=== PATIENT | male | born 1955 | race Caucasian/White ===

== ENCOUNTER → 2022-06-12 | Outpatient (CLI) | payer MEDICARE ==
--- NOTE | 2022-06-12 15:31 | P.PN ---
Progress Note - Text Progress Note Date: 06/12/22 This is a 66 year-old male patient who has sleep apnea. The patient was diagnosed having obstructive sleep apnea approximately 10 years ago. At that time the patient had a [facility] evaluation and the patient was diagnosed having CHENTE and he thinks that he was quitting breathing around 28 times an hour. This is consistent with moderately severe disease. He was given a ResMed S9, and currently has a VPAP auto which is set at P min 4 and pressure a maximum pressure of 25 with a pressure support of 4. He was also given a Simplus fullface mask. Unfortunately, he was able to achieve adequate compliancy and the patient ultimately was uncomfortable and intolerant to the BiPAP and he ended up quitting the treatment has been on no treatment . He had gained around 50 pounds since his original diagnosis. His blood pressure is elevated. He has comorbidities including coronary artery disease. Currently he is on a VPAP . During earlier evaluations in my office, I have tried different settings including a automatic VPAP pressures minimum of 4 and a maximum of 60 with a pressure support of 4. The patient showed some degree of success and he was averaging around 4.6 hours of BiPAP use per night. Nevertheless, at the later stage, he ended up quitting the treatment and he was not using it on a regular basis. His last evaluation with me in the office was on 11/22/2021. At that time, I tried him on a IPAP at the lowest setting of 8 over 4 cm of water, S mode , yet again, the patient failed to maintain compliancy. Today's coming in for further advice. He has undergone an ENT evaluation by Dr. Scott and his nasal passages are patent. He currently has a dream where fullface mask under the nose. While off treatment, the patient is snoring. He has chronic hypersomnia and sleepiness during the day. His current weight is 274 pounds and his Transfer score is at 7. 18 inches. He has going to bed at around 10 PM, waking up 6 AM in the morning and is feeling not refreshed. The is sleeping in a different bedroom. The patient wakes up 2 times the middle of the night and is able to go back to sleep without any major difficulties. He is coming in for further advice. He has tried BiPAP therapy and he gets short of breath and he cannot breathe and various pressures that were offered to him. He failed VPAP auto. He failed low-pressure setting BiPAP at a pressure of 8 over 4. BP is 125/90 with a pulse of 62 and respirations are 18 with a weight of 274 and the temperature is 98.4 and a body mass index is 41.4 with an Transfer score of 7 and the neck size of 18 inches Gen. appearance the patient is obese, comfortable no acute distress The patient appeared well nourished and normally developed. Vital signs as documented. Head exam is unremarkable. No scleral icterus or corneal arcus noted. Neck is without jugular venous distension, thyromegaly, or carotid bruits. Carotid upstrokes are brisk bilaterally. The patient has a Mallampati class IV. Lungs are clear to auscultation and percussion. Cardiac exam reveals the PMI to be normally sized and situated. Rhythm is regular. First and second heart sounds normal. No murmurs, rubs or gallops. Abdominal exam reveals normal bowel sounds, no masses, no organomegaly and no aortic enlargement. Extremities are nonedematous and both femoral and pedal pulses are normal. Examination of the skin revealed no evidence of significant rashes, suspicious appearing nevi or other concerning lesions.Neurologically, the patient is awake and alert and the patient does not have any focal neurological deficit. Cranial nerves are essentially intact. assessment Obstructive sleep apnea syndrome - the patient has obstructive sleep apnea. The patient was diagnosed at least 10 years ago and he underwent his study through a [facility] system where he was given diagnosis of moderate severe obstructive sleep apnea, possibly an AHI of 28. I checked his VPAP machine which is a new generation ResMed. I noted the pressure setting at a minimum pressure of 4, maximum pressure of 16 with a pressure support 4. He is using a dreamware fullface mask.I did several adjustments on this patient's machine including lowering his BiPAP pressure to a pressure of 8 over 4 cm of water and changing his mask interface and all of t hese interventions failed. The patient is unable to maintain CPAP therapy and various pressures and his main complaint is shortness of breath Hypertension Coronary artery disease with previous coronary bypass surgery History of seizure disorder Morbid obesity with a BMI of 41 Plan He has tremors diagnosis of sleep apnea by doing a home sleep study to assess the presence of sleep apnea and its severity and decide and ongoing treatment is worthwhile. If ongoing treatment is needed, and lab CPAP titration will be recommended for this patient. Encourage weight loss. Optimize sleep hygiene measures. We'll continue to follow. ENT evaluation was done and the findings were essentially benign.
== END ==
LOC: SLEEP 14:17
PROVIDERS: ATTEND Internal Medicine Critical Care Medicine
DX: G47.33 Obstructive sleep apnea (adult) (pediatric) (principal); I10 Essential (primary) hypertension; I25.10 Atherosclerotic heart disease of native coronary artery without angina pectoris; E66.01 Morbid (severe) obesity due to excess calories; Z99.89 Dependence on other enabling machines and devices; G40.909 Epilepsy, unspecified, not intractable, without status epilepticus; Z68.41 Body mass index [BMI] 40.0-44.9, adult
CPT/HCPCS: 99202

== ENCOUNTER → 2022-10-23 | Outpatient (CLI) | payer MEDICARE ==
--- NOTE | 2022-10-23 16:30 | P.PN ---
Progress Note - Text Progress Note Date: 10/23/22 On today's evaluation of 10/23/2022, I'm seeing the patient for a follow-up regarding his obstructive sleep apnea treatment. The patient is known to me and the patient is known to have obstructive sleep apnea moderate to severe with an AHI of 28 and a more recent home sleep study that was on this patient confirmed the presence of severe CHENTE with an AHI [address] Servin desaturation.. The patient has told different CPAP units. The first CPAP unit is a newer generation ResMed VPAP auto which is set at a EPAP of 10, max and pressure of 20 with a pressure support of 4 and the other one is a S9 severe disease in the setting of the machine is at EPAP minimal 4 and a maximum of 16 with a pressure support of 4. He is alternating between 2 machines. I checked the compliancy in both of the machines. I think the results are essentially comparable. On the newer generation ResMed, the patient has been averaging about 7 hours of BiPAP use per night and average pressure delivered by the machines around 14/10 with a tidal volume of 540 and a respiratory rate of 12 and a minute ventilation of 6.5 L. The patient's AHI is down to 1.1. He was also using the simplus fullface mask. The patient is complaining of oral dryness. His humidity is automatic and the temperature of the tube is at 75F. This patient's main complaint is difficulties in oral dryness. The date on the S9 severe disease are also compatible. The patient is still feeling not rested and he wants to improve his sleep quality in general. Is known to have coronary artery disease, previous bypass surgery and hypertension. He remains obese and his body weight is at 265 although the patient has lost some weight since his last evaluation BP is 133/91 with a pulse of 63 and a respiration of 20 and a temperature of 97.9 with a pulse ox of 95% Gen. appearance the patient is obese, comfortable The patient appeared well nourished and normally developed. Vital signs as documented. Head exam is unremarkable. No scleral icterus or corneal arcus noted. Neck is without jugular venous distension, thyromegaly, or carotid bruits. Carotid upstrokes are brisk bilaterally. The patient has a Mallampati class IV with significant crowding of the posterior oropharynx. Lungs are clear to auscultation and percussion. Cardiac exam reveals the PMI to be normally sized and situated. Rhythm is regular. First and second heart sounds normal. No murmurs, rubs or gallops. Abdominal exam reveals normal bowel sounds, no masses, no organomegaly and no aortic enlargement. Extremities are nonedematous and both femoral and pedal pulses are normal.Examination of the skin revealed no evidence of significant rashes, suspicious appearing nevi or other concerning lesions.Neurologically, the patient is awake and alert and the patient does not have any focal neurological deficit. Cranial nerves are essentially intact. Assessment Severe CHENTE with an AHI 51 currently on VPAP auto with the above-mentioned setting. The patient is having some difficulties with oral dryness. Compliancy still suboptimal. Nocturnal oxygen desaturation secondary obstructive sleep apnea Morbid obesity with interval weight loss, body mass index is 39.7 Coronary artery disease with previous bypass surgery Hypertension Seizure disorder Plan I made further adjustment on the patient's VPAP auto. I dropped a EPAP down to 6 and The max and pressure at 20 with a pressure support of 4. The patient will use the Simplus fullface mask. I dropped the temperature down to 70 and I increase the humidity to 5. The patient will see back in the office in 2 months time for a mother compliancy check. Patient was educated on the use of his BiPAP and we'll continue to follow.
== END ==
LOC: SLEEP 15:32
PROVIDERS: ATTEND Internal Medicine Critical Care Medicine
DX: G47.33 Obstructive sleep apnea (adult) (pediatric) (principal); E66.01 Morbid (severe) obesity due to excess calories; Z68.39 Body mass index [BMI] 39.0-39.9, adult; I25.10 Atherosclerotic heart disease of native coronary artery without angina pectoris; I10 Essential (primary) hypertension; G40.909 Epilepsy, unspecified, not intractable, without status epilepticus; Z99.89 Dependence on other enabling machines and devices
CPT/HCPCS: 99212

== ENCOUNTER → 2023-12-10 | Outpatient (CLI) | payer MEDICARE | END | disposition home or self-care (01) | LOC: LABPAT 08:40 | PROVIDERS: ATTEND Orthopaedic Surgery | DX: Z01.812 Encounter for preprocedural laboratory examination (principal); M17.12 Unilateral primary osteoarthritis, left knee; Z22.322 Carrier or suspected carrier of Methicillin resistant Staphylococcus aureus | CPT/HCPCS: 87070 ==

== ENCOUNTER 2023-12-23 07:59 | Day surgery (SDC) | payer MEDICARE ==
--- NOTE | 2023-12-23 06:37 | HP ---
HISTORY AND PHYSICAL DATE OF SURGERY: 12/23/2023 HISTORY OF PRESENT ILLNESS: Mickey Rodriguez is a 68-year-old gentleman, seen with symptomatic left knee osteoarthritis. Options for treatment were discussed with him. He elected to proceed with left total knee arthroplasty. Consent was obtained. Medical clearance was provided by Dr. Melinda Mansfield. Cardiac clearance was provided by Dr. Hubbard. PAST MEDICAL HISTORY: Hypertension, hyperlipidemia, cardiovascular disease. PAST SURGICAL HISTORY: Coronary bypass surgery. DAILY MEDICATIONS: Albuterol inhaler, amlodipine, atorvastatin, hydrochlorothiazide, losartan, and Xarelto. ALLERGIES: Penicillin. SOCIAL HISTORY: He denies current tobacco use. PHYSICAL EVALUATION OF THE LEFT KNEE: His range of motion is 0 on 30 degrees. He has a mild effusion. Tenderness, medial joint line. Crepitus, medial patellofemoral compartments with range of motion. Pain with patellofemoral compression. Ligaments stable. Hip rotation without pain. Distal neurovascular exam is intact. IMAGING STUDIES: Left knee radiographs reveal severe osteoarthritic changes. IMPRESSION: 1. Left knee osteoarthritis. 2. Hypertension. 3. Hyperlipidemia. 4. Cardiovascular disease. PLAN: Left total knee arthroplasty. MMODL / IJN: [id number] /
[~2023-12-23 07:59] MED LIST: HYDROmorphone 0.5 MG/0.5 ML SYRINGE IVP PRN; LIDOCAINE 1% (10MG/ML) FOR IV START INTRADERMA PRN; TRANEXAMIC 1,000 MG/100ML-NACL 1,000 MG in SALINE 1 100ML.BAG IVPB PRN
[2023-12-23] MEDS: IV FLUID CONTINUATION 1,000 ML IV ONE ×2 (08:45→12:35)
[2023-12-23 08:56] LABS: INR 1.1 (<1.2); Prothrombin Time 11.5 sec (10.0-12.5)
[2023-12-23] MEDS: LACTATED RINGERS 1,000 ML IV SCH ×3 (09:00→13:45)
[2023-12-23] MEDS: MELOXICAM 7.5 MG TAB PO PRN (09:03)
[2023-12-23] MEDS: fentaNYL (PF) 50 MCG/ML 2 ML AMP IVP ONE (09:03)
[2023-12-23] MEDS: MIDAZOLAM 2 MG/2 ML VIAL IVP ONE (09:03)
[2023-12-23] MEDS: ACETAMINOPHEN TAB 500 MG TAB PO PRN (09:03)
[2023-12-23] MEDS: ONDANSETRON 4 MG/2 ML VIAL IVP ONE (09:14)
[2023-12-23] MEDS: DEXAMETHASONE SOD PHOSPHATE 4 MG/ML 1 ML VIAL IVP STA (09:15)
[2023-12-23] MEDS ORDERED: fentaNYL (PF) 50 MCG/ML 2 ML AMP ONE (09:31)
[2023-12-23] MEDS ORDERED: ePHEDrine 50 MG/ML 1 ML VIAL ONE (09:31)
[2023-12-23] MEDS ORDERED: MIDAZOLAM 2 MG/2 ML VIAL ONE (09:31)
[2023-12-23] MEDS ORDERED: PROPOFOL 10 MG/ML 20 ML VIAL IV ONE (09:31)
[2023-12-23] MEDS ORDERED: TRANEXAMIC 1,000 MG/100ML-NACL PREMIX BAG ONE (09:31)
[2023-12-23] MEDS ORDERED: SODIUM CHLORIDE 0.9% (PF) 10 ML VIAL ONE (09:31)
[2023-12-23] MEDS ORDERED: ROPIVACAINE 5 MG/ML 30 ML VIAL ONE (09:31)
[2023-12-23] MEDS ORDERED: DEXAMETHASONE SOD PHOSPHATE 4 MG/ML 1 ML VIAL ONE (09:31)
[2023-12-23] MEDS: ceFAZolin 3 GM in SODIUM CHLORIDE 0.9% 100 ML IVPB PRN (09:34)
[2023-12-23] MEDS: ceFAZolin 1,000 MG in SODIUM CHLORIDE 0.9% 1,000 ML IRRIGATION ONE (10:06)
--- NOTE | 2023-12-23 10:29 | P.ANPRN ---
Procedure Note - Anesthesia - Nerve Block Performed Left Adductor Canal Infusion Time Out Performed: Yes Date of Procedure: 12/23/23 Procedure Start Time: :03 Procedure Stop Time: 09:12 Location of Patient: PreOp Indication: Acute Post-Operative Pain, Requested by Surgeon Sedation Type: Sedate with meaningful contact maintained Preparation: Sterile Prep, Sterile Dressing Position: Supine Catheter: Indwelling Needle Types: Pajunk Needle Gauge: 18 Ultrasound used to visualize needle placement: Yes Ultrasound used to observe medication spread: Yes Injectate: 0.5% Ropivacaine (see comment for volume) (20 ml + 10 ml NS PF) Blood Aspirated: No Pain Paresthesia on Injection Noted: No Resistance on Injection: Normal Image Stored and Saved: Yes Events: Uneventful and Well Tolerated
--- NOTE | 2023-12-23 10:31 | P.ANPRN ---
Procedure Note - Anesthesia - Nerve Block Performed Left Mahesh Single Time Out Performed: Yes Date of Procedure: 12/23/23 Procedure Start Time: 09:13 Procedure Stop Time: :18 Location of Patient: PreOp Indication: Acute Post-Operative Pain, Requested by Surgeon Sedation Type: Sedate with meaningful contact maintained Preparation: Sterile Prep Position: Right Lateral Needle Types: Pajunk Needle Gauge: 21 Ultrasound used to visualize needle placement: Yes Ultrasound used to observe medication spread: Yes Injectate: 0.5% Ropivacaine (see comment for volume) (20 ml + 10 ml NS PF + 4 mg Dexamethasone) Blood Aspirated: No Pain Paresthesia on Injection Noted: No Resistance on Injection: Normal Image Stored and Saved: Yes Events: Uneventful and Well Tolerated
[2023-12-23] MEDS ORDERED: HYDROcodone/APAP 5-325MG 1 EACH TAB PO PRN (11:23)
[2023-12-23] MEDS ORDERED: ONDANSETRON 4 MG/2 ML VIAL IVP PRN (11:23)
[2023-12-23] MEDS ORDERED: NALOXONE 0.4 MG/ML 1 ML VIAL IV PRN (11:23)
[2023-12-23] MEDS ORDERED: HYDROmorphone 0.5 MG/0.5 ML SYRINGE IVP PRN ×2 (11:23)
--- NOTE | 2023-12-23 11:23 | P.OP ---
Date of Procedure: 12/23/23 Preoperative Diagnosis: Left knee osteoarthritis Postoperative Diagnosis: Left knee osteoarthritis Procedure(s) Performed: Left total knee arthroplasty Implants: 1. DePuy attune size 7 left cruciate retaining cemented femur 2. DePuy attune size 7 fixed-bearing cemented tibial baseplate 3. DePuy attune size 7 fixed-bearing cruciate retaining 12 mm polyethylene tibial insert 4. DePuy attune 38 mm all polyethylene cemented patella Anesthesia: regional (Adductor canal catheter, iPAQ block), spinal Surgeon: Clark Tang Sheet [employer] Sander #1: Jaylan Israel Estimated Blood Loss (ml): 50 Pathology: none sent Condition: stable Disposition: PACU Indications for Procedure: 68-year-old patient seen with symptomatic left knee osteoarthritis. After having treatment options discussed, he elected to proceed with total knee arth roplasty. Operative Findings: See description of procedure Description of Procedure: Patient was taken to the operative suite after having an adductor canal catheter placed by the department of anesthesia. Patient underwent a spinal anesthetic by the department of anesthesia. Patient was given preoperative IV intake antibiotics and TXA. A well-padded tourniquet was placed about the [] lower extremity. The lower extremity was then prepped and draped in the normal sterile orthopedic fashion. The extremity was elevated, a tourniquet was ins ufflated to 300. A standard anterior incision was made sharply through skin. Dissection was taken down through the subcutaneous soft tissues down to the extensor mechanism. A medial arthrotomy was performed, patella was everted and knee was flexed. There was advanced osteoarthritis noted. I introduced my distal intramedullary femoral drill. I then introduced the distal femoral cutting jig. Melchor GUTHRIE secured the cutting jig with 2 pins. I held retractors in position while Melchor GUTHRIE performed the distal femoral resection through the guide area we now removed her distal femoral cutting guide. We now placed our 4-in-1 femoral cutting block and positioned and it was secured with 2 pins by Melchor GUTHRIE while I held the block in position. The distal femoral finishing was now completed. A proximal tibial cutting guide was positioned. I held the guide in the appropriate position with both hands well Melchor GUTHRIE inserted stabilizing pins into the guide. Proximal tibial cut was made. We now placed a trial femoral component into position, along with an appropriate size tibial tray and insert. We now took the knee through range of motion and had full extension good flexion and good overall soft tissue balance noted. The patella was everted and stabilized with 2 towel clips held by Melchor GUTHRIE while I performed a flush with patellar quad tendon utilizing a fresh sawblade. We templated the patella, appropriate drill holes were made. An appropriate trial patella was positioned, knee was taken through full range of motion with the patella tracking very nicely. The trial patella was removed. Drill holes were made through the femoral component. All trial components were removed after marking off the appropriate rotation of the tibia. Retractors were now positioned along the proximal tibia. An appropriate keel punch was made with the appropriate size tibial guide by myself on Melchor GUTHRIE assisted by holding retractors. At this point appropriate size implants were chosen and opened. The joint was irrigated copiously with pulse lavage mechanical irrigation. The wound was irrigated with pulse lavage mechanical irrigation. We mixed antibiotic methylmethacrylate. We placed the knee into flexion. We placed multiple retractors assisted by Melchor GUTHRIE to expose the proximal tibia. Once the methyl methacrylate was ready, the tibial component was cemented into place removing any excess methylmethacrylate form by both myself and Melchor GUTHRIE. The femoral component was cemented into place removing the removing any excess methylmethacrylate performed by both myself and Melchor GUTHRIE. We then inserted the appropriate size polyethylene tibial insert. We made sure that it was locked into position. We took the knee into full extension, and then back in a flexion making sure we had removed any excess methylmethacrylate. The patellar component was then cemented down and secured with clamp. Excess methylmethacrylate removed. We kept the knee in full extension, patellar clamp in position until methylmethacrylate had hardened. Once it had hardened the patellar clamp was removed. The knee was taken through full range of motion. The patella tracked nicely. There was good soft tissue balancing. The tourniquet was now released. Additional hemostasis was achieved via electrocautery. A second gram of TXA was given. The wound again was irrigated with pulse lavage mechanical irrigation. The extensor mechanism was repaired with Vicryl. We checked the repair with range of motion and it was stable. The subcutaneous soft tissues were repaired with Vicryl in layers. The skin was approximated with pernio/Dermabond. Sterile dressings were applied followed by loose web roll and Yaakov bandage. The patient was transferred to a bed, and taken to recovery in stable and satisfactory condition. Melchor GUTHRIE assisted with this complex procedure.
[2023-12-23] MEDS: ROPIVACAINE 1,100 MG, SODIUM CHLORIDE 0.9% 500 ML 330 ML, EMPTY PAIN BALL 1 EACH MISCELLANE PRN (12:03)
--- NOTE | 2023-12-23 12:18 | XR ---
EXAMINATION TYPE: XR knee limited LT DATE OF EXAM: 12/23/2023 CLINICAL HISTORY: Postoperative evaluation Two views of the left knee are submitted. Identified are changes of total knee arthroplasty with fem oral and tibial components appearing well seated. Postsurgical soft tissue changes are noted. Align ment is anatomic.
[2023-12-23] MEDS: HYDROmorphone 0.5 MG/0.5 ML SYRINGE IVP PRN (14:20)
[2023-12-23] MEDS: HYDROcodone/APAP 7.5-325MG 1 EACH TAB PO PRN (15:51)
[2023-12-23] MEDS: ceFAZolin 3 GM in SODIUM CHLORIDE 0.9% 100 ML IVPB SCH (18:11)
[2023-12-23] MEDS ORDERED: ALBUTEROL HFA INHALER INHALATION PRN (19:05)
[2023-12-23] MEDS: HYDROmorphone 1 MG/ML 1 ML SYRINGE IVP PRN (19:35)
[2023-12-23] MEDS: carvediloL 12.5 MG TAB PO SCH (21:23)
[2023-12-23] MEDS: ATORVASTATIN 80 MG TAB PO SCH (21:24)
[2023-12-23] MEDS: SENNOSIDES-DOCUSATE SODIUM 1 EACH TAB PO SCH (21:24)
[2023-12-23] MEDS: LOSARTAN 50 MG TAB PO SCH (21:24)
[2023-12-23] MEDS: carBAMazepine 200 MG TAB PO SCH (21:24)
[2023-12-24] MEDS: ENOXAPARIN 30 MG/0.3 ML SYRINGE SQ SCH (01:06)
[2023-12-24 07:21] VITALS: BP 100/61; PULSE 64; RESP 17; TEMP 97.5
--- NOTE | 2023-12-24 07:43 | P.PN ---
Progress Note - Text Progress Note Date: 12/24/23 Postoperative day # 1 status post total knee arthroplasty, and adductor canal catheter placed for postoperative analgesia, currently at ropivacaine 0.2% 8 mL per hour and continuous infusion, visual analogue scale is 4/10, patient using oral pain medication for breakthrough pain. Assessment and plan= Acute postoperative pain, adductor canal catheter for pain control, pain is controlled, we'll continue the same management.
[2023-12-24 08:37] LABS: Basophils # (A) 0.01 X 10*3/uL (0.00-0.10); Basophils % (A) 0.1 %; Eosinophils # (A) 0.01 X 10*3/uL (0.04-0.35); Eosinophils % (A) 0.1 %; HCT 35.4 % (39.6-50.0); HGB 12.2 g/dL (13.0-17.0); Lymphocytes # (A) 0.79 X 10*3/uL (0.90-5.00); MCH 31.1 pg (27.0-32.0); MCHC 34.5 g/dL (32.0-37.0); MCV 90.3 FL (80.0-97.0); Mean Platelet Volume 9.6 FL (9.5-12.2); Monocytes # (A) 0.55 X 10*3/uL (0.20-1.00); Monocytes % (A) 6.3 %; NRBC Per 100 WBC 0 X 10*3/uL (0.00-0.01); Neutrophils # (A) 7.33 X 10*3/uL (1.80-7.70); Platelet Count 164 X 10*3/uL (140-440); RBC 3.92 X 10*6/uL (4.40-5.60); RDW 13.3 % (11.5-14.5); WBC 8.73 X 10*3/uL (4.50-10.00)
[2023-12-24] MEDS: DILTIAZEM CD 180 MG CAP.ER.24H PO SCH (09:49)
[2023-12-24] MEDS: MELOXICAM 7.5 MG TAB PO SCH (09:49)
[2023-12-24] MEDS: carBAMazepine 200 MG TAB PO SCH (09:51)
--- NOTE | 2023-12-24 10:16 | P.PN ---
Subjective Progress Note Date: 12/24/23 Principal diagnosis: Status post left total knee arthroplasty Patient evaluated at bedside today, he is resting in his hospital chair. He is ambulated well with physical therapy. He has been urinating with no issues. His pain is well-controlled. Denies headaches, lightheadedness, chest pain or shortness of breath Objective - Vital Signs Vital signs: Vital Signs Temp 97.5 F L 12/24/23 07:20 Pulse 64 12/24/23 07:20 Resp 17 12/24/23 07:20 BP 100/61 12/24/23 07:20 Pulse Ox 95 12/24/23 07:20 FiO2 Intake & Output 12/23/23 12/24/23 12/24/23 18:59 06:59 18:59 Intake Total 1301 Output Total 50 235 Balance 1251 -235 Weight 122.8 kg Intake: IV 1101 Oral 200 Output: Post Void Residual 235 Estimated Blood Loss 50 Other: Voiding Method Toilet # Voids 4 1 - Exam Left lower extremity: Incision is clean, dry, and intact. The foam dressing is in good condition. There is minimal soft tissue swelling and ecchymosis surrounding the medial and lateral aspects of the incision. Calf is soft, no tenderness with palpation. Plantar flexion, dorsiflexion, EHL, FHL are intact. Sensory exam to light touch throughout the extremity is intact, dorsal pedis pulses 2+. - Labs CBC & Chem 7: 12/24/23 05:38 Labs: Abnormal Lab Results - Last 24 Hours (Table) 12/24/23 Range/Units 05:38 RBC 3.92 L (4.40-5.60) X 10*6/uL Hgb 12.2 L (13.0-17.0) g/dL Hct 35.4 L (39.6-50.0) % Lymphocytes # 0.79 L (0.90-5.00) X 10*3/uL Eosinophils # 0.01 L (0.04-0.35) X 10*3/uL Assessment and Plan Assessment: Postoperative day #1 status post left total knee arthroplasty Plan: Pain control, plan for Alma 7.5 mg / 325 mg at discharge DVT prophylaxis , patient is utilizing Lovenox in hospital, will resume his Xarelto tomorrow Wound care instructions were discussed, this to include icing and elevating along with showering Home PT/nursing after discharge Medical recommendations appreciated Discharge planning: Patient stable for discharge home today Time with Patient: Less than 30
--- NOTE | 2023-12-24 10:20 | P.DS ---
Providers Date of admission: 12/23/2023 Expected date of discharge: 12/24/23 Attending physician: Clark Tang Consults: 12/23/23 11:23 Consult Physician Routine Consulting Provider: Rogers Patterson Consult Reason/Comments: Medical management Do you want consulting provider notified?: Yes Primary care physician: Sylvie Mansfield Hospital Course: Date of admission: 12/23/2023 Date of discharge: 12/24/2023 Admission diagnosis: Status post left total knee arthroplasty Discharge diagnosis: Same Attending physician: Dr. Tang Surgical procedures: Left total knee arthroplasty Brief history: Patient is a 68-year-old male with a history of progressive primary left knee osteoarthritis. At this point patient has failed conservative treatment measures and has opted to proceed with a elective left total knee arthroplasty. Hospital course: Details of patient's surgery can be found in operative report. Patient tolerated the procedure well and was subsequently transported to orthopedic floor. Patient's orthopeidc and medical care was provided daily. Patient had daily laboratory tests performed for evaluation of overall blood counts. Patient had daily physical therapy to include strengthening range of motion as well as education with walker ambulation. Patient was treated with Lovenox for their postoperative DVT prophylaxis during their inpatient stay. Patient was noted to have a relatively uneventful postoperative course. Patient reported satisfactory pain control with oral pain medications by postoperative day 0. Patient showed satisfactory progress with physical therapy. Patient moved steadily through the program and had no difficulty meeting the goals by postoperative day 1. Given patient's otherwise satisfactory course and having met physical therapy goals, plan is to discharge patient home on postoperative day 1. Discharge condition/disposition: Patient will be discharged home in stable condition. Discharge medications: Instructions are given on resumption of patient's normal daily medications per primary care recommendation, in addition patient will be prescribed Marana 7.5 mg / 325 mg, senna S. Discharge instructions: 1. Wound care and infection precautions, keep incision dry and covered while showering, no lotions, creams, moisturizers. No soaking, tubs, pools, hottubs. Do not scrub over the incision. 2. Weight-bear as tolerated with walker / cane until follow-up. 3. Ice and elevate when necessary. Do not exceed 20 minutes per hour with ice pack. 4. Utilize compression sleeve until seen at first follow up appointment. 5. Visiting nursing care. 6. Home physical therapy including home CPM. 7. Pain meds and anticoagulants per prescription. 8. Pain medication has potential to cause constipation. Increase oral fluid and fiber intake. Contact primary care provider if you have not had a bowel movement within 48 hours after discharge 9. No anti-inflammatory medication until discussed at first post operative visit, this including Motrin, Aleve, Mobic, Diclofenac. 10. Follow up in office at 2 weeks postop with Melchor Israel PA-C/Nikos Peña 11. Follow up with your primary care doctor 7-10 days after discharge. 12. Contact [facility] with any questions, . Procedures: Left total knee arthroplasty Patient Condition at Discharge: Good Plan - Discharge Summary Discharge Rx Participant: No New Discharge Prescriptions: New HYDROcodone/APAP 7.5-325MG [[place] 7.5] 1 each PO Q6HR PRN #28 tab PRN Reason: Pain Sennosides/Docusate Sodium [Senna-S 8.6-50 mg Tablet] 2 each PO DAILY PRN #30 tablet PRN Reason: Constipation No Action Fluticasone Nasal [place] [Flonase Nasal [place]] 2 spray EA NOSTRIL DAILY PRN PRN Reason: allergies carvediloL 25 mg PO BID Losartan Potassium 100 mg PO HS Diltiazem Cd [Cardizem CD] 180 mg PO DAILY Albuterol Inhaler [Ventolin Hfa Inhaler] 1 - 2 puff INHALATION Q6H PRN PRN Reason: Shortness Of Breath Rivaroxaban [Xarelto] 20 mg PO HS Aspirin [Adult Low Dose Aspirin EC] 81 mg PO DAILY carBAMazepine [Carbatrol] 200 mg PO HS carBAMazepine [Carbatrol] 400 mg PO DAILY Rosuvastatin Calcium [Crestor] 40 mg PO HS hydroCHLOROthiazide 25 mg PO DAILY Nabumetone 750 mg PO DAILY Discharge Medication List Albuterol Inhaler [Ventolin Hfa Inhaler] 1 - 2 puff INHALATION Q6H PRN 12/19/23 [History] Aspirin [Adult Low Dose Aspirin EC] 81 mg PO DAILY 12/19/23 [History] Diltiazem Cd [Cardizem CD] 180 mg PO DAILY 12/19/23 [History] Fluticasone Nasal [place] [Flonase Nasal [place]] 2 spray EA NOSTRIL DAILY PRN 12/19/23 [History] Losartan Potassium 100 mg PO HS 12/19/23 [History] Nabumetone 750 mg PO DAILY 12/19/23 [History] Rivaroxaban [Xarelto] 20 mg PO HS 12/19/23 [History] Rosuvastatin Calcium [Crestor] 40 mg PO HS 12/19/23 [History] carBAMazepine [Carbatrol] 200 mg PO HS 12/19/23 [History] carBAMazepine [Carbatrol] 400 mg PO DAILY 12/19/23 [History] carvediloL 25 mg PO BID 12/19/23 [History] hydroCHLOROthiazide 25 mg PO DAILY 12/19/23 [History] HYDROcodone/APAP 7.5-325MG [[place] 7.5] 1 each PO Q6HR PRN #28 tab 12/24/23 [Rx] Sennosides/Docusate Sodium [Senna-S 8.6-50 mg Tablet] 2 each PO DAILY PRN #30 tablet 12/24/23 [Rx] Follow up Appointment(s)/Referral(s): Jaylan Israel PAC [PHYSICIAN [employer]ER] - 2 Weeks Activity/Diet/Wound Care/Special Instructions: Orthopedic Discharge Instructions: 1. Wound care and infection precautions, keep incision dry and covered while showering, no lotions, creams, moisturizers. No soaking, pools, hot tubs. Do not scrub over incision. 2. Weight-bear as tolerated with walker / cane until follow-up. 3. Ice and elevate when necessary. Do not exceed 20 minutes per hour with ice pack. 4. Utilize compression sleeve until seen at first follow up appointment. 5. Pain meds and anticoagulants per prescription. 6. Pain medication has potential to cause constipation. Increase oral fluid and fiber intake. Contact primary care provider if you have not had a bowel movement within 48 hours after discharge. 7. No anti-inflammatory medication until discussed at first post operative visit, this including Motrin, Aleve, Mobic, Diclofenac. 8. Follow up in office at 2 weeks postop with Melchor Israel PA-C/Nikos Roque PA-C 9. Follow up with your primary care doctor 7-10 days after discharge. 10. Contact [facility] with any questions, . Wound care instructions: 1. Okay to remove surgical dressing as of 12/30/2023 2. Okay to shower directly over the incision after removal of dressing Discharge Disposition: HOME WITH HOME HEALTH SERVICES
[2023-12-24] MEDS ORDERED: MULTIVITAMINS, THERA 1 EACH TAB PO SCH (12:00)
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
== END 2023-12-24 12:32 | disposition home health service (06) ==
LOC: OR 07:59 → 4SSUR 11:18 → OR 12-24 12:32
PROVIDERS: ATTEND Orthopaedic Surgery
DX: M17.12 Unilateral primary osteoarthritis, left knee (principal); G89.18 Other acute postprocedural pain; G47.33 Obstructive sleep apnea (adult) (pediatric); I10 Essential (primary) hypertension; J45.909 Unspecified asthma, uncomplicated; I25.10 Atherosclerotic heart disease of native coronary artery without angina pectoris; K21.9 Gastro-esophageal reflux disease without esophagitis; I48.3 Typical atrial flutter; E78.2 Mixed hyperlipidemia; I34.0 Nonrheumatic mitral (valve) insufficiency; E66.9 Obesity, unspecified; Z88.0 Allergy status to penicillin; Z88.8 Allergy status to other drugs, medicaments and biological substances; Z95.5 Presence of coronary angioplasty implant and graft; Z87.891 Personal history of nicotine dependence; Z79.82 Long term (current) use of aspirin; Z79.899 Other long term (current) drug therapy; Z79.01 Long term (current) use of anticoagulants
CPT/HCPCS: 97161; 64999; 64448; 85025; 85610; 73560; 27447; C1776; C1713 ×2; C1751; J2250; J1100; J0690 ×3; J2405; J3010; J1650; J1170 ×3; J2795